=== PATIENT | female | born 1960 | race Caucasian/White ===

== ENCOUNTER 2022-03-27 00:05 | Emergency (ER) | payer OTHER | END 2022-03-27 01:26 | disposition home or self-care (01) | LOC: JP.ED 00:05 | DX: S60.562A Insect bite (nonvenomous) of left hand, initial encounter (principal); S50.862A Insect bite (nonvenomous) of left forearm, initial encounter; Z91.018 Allergy to other foods; Z91.048 Other nonmedicinal substance allergy status; W57.XXXA Bitten or stung by nonvenomous insect and other nonvenomous arthropods, initial encounter | CPT/HCPCS: 99282 ==